=== PATIENT | male | born 1940 | race Caucasian/White ===

== ENCOUNTER 2018-05-14 10:19 | Outpatient (CLI) | payer MEDICARE, BC, SELFPAY ==
[2018-05-14 13:40] LABS: Cholesterol 146 mg/dL (50-200); HDL Cholesterol 45 mg/dL (40-60); LDL CHOLESTEROL 83 mg/dL (<100); Triglyceride 100 mg/dL (30-150)
== END 2018-05-14 10:39 ==
PROVIDERS: PCP Family Medicine; Visit Provider Family Medicine
DX: E78.5 Hyperlipidemia, unspecified (principal); R73.01 Impaired fasting glucose
CPT/HCPCS: 36415; 80061; 83721

== ENCOUNTER 2024-01-23 03:26 | Outpatient (CLI) | payer MEDICARE, BC, SELFPAY ==
[2024-01-23 10:01] LABS: Abs Immature Grans 0.15 10^3/uL (0.0-0.06); Absolute Basophil Count 0.04 10^3/uL (0.0-0.2); Absolute Monocyte Count 0.91 10^3/uL (0.1-0.8); Basophils % 0.3 %; Eosinophils % 0.4 %; HCT 39.7 % (40.0-50.0); HGB 13.4 g/dL (13.5-17.5); Immature Grans % 1.1 %; Lymphocytes % 4.9 %; MCH 30.1 pg (27.0-33.0); MCHC 33.8 % (32.0-36.0); MCV 89 fL (80-95); MPV 8.7 fL (8.0-11.0); Monocytes % 6.4 %; Neutrophils % 86.9 %; Platelet Count 331 10^3/uL (130-400); RBC 4.45 10^6/uL (4.36-5.78); RDW 13.1 % (11.8-14.1); RDW-SD 42.5 fL; WBC 14.22 10^3/uL (4.4-10.8)
[2024-01-23 10:02] LABS: Absolute Eosinophil Count 0.06 10^3/uL (0.0-0.7); Absolute Neutrophil Count 12.36 10^3/uL (1.2-6.7)
[2024-01-23 10:28] LABS: ALT 13 U/L (16-63); AST 21 U/L (15-37); Albumin 2.4 g/dL (3.4-5.0); Alkaline Phosphatase 248 U/L (46-116); Anion Gap 11.8 mmol/L (3-11); BUN 28 mg/dL (7-18); Bilirubin, Total 1.22 mg/dL (0.2-1.0); CO2 26.2 mmol/L (21.0-32.0); CREATININE 1.1 mg/dL (0.70-1.30); Chloride 98 mmol/L (98-107); Estimated GFR 67.02 (mL/min/1.73m2); FREE T4 1.28 ng/dL (0.76-1.46); Glucose 107 mg/dL (74-106); Magnesium 1.8 mg/dL (1.8-2.4); Potassium 3.5 mmol/L (3.5-5.1); Sodium 136 mmol/L (136-145); TSH 2.83 uIU/Ml (0.36-3.74); Total Protein 6.6 g/dL (6.4-8.2)
[2024-01-23 10:48] LABS: Vitamin B12 390 pg/mL (193-986)
[2024-01-24 15:57] LABS: Syphilis Serology (RPR) Negative (Negative)
== END 2024-01-23 03:27 | disposition home or self-care (01) ==
PROVIDERS: PCP Family Medicine; Visit Provider Internal Medicine Medical Oncology
DX: D64.9 Anemia, unspecified (principal); E03.9 Hypothyroidism, unspecified; I10 Essential (primary) hypertension; R41.3 Other amnesia; Z79.899 Other long term (current) drug therapy; C34.90 Malignant neoplasm of unspecified part of unspecified bronchus or lung; C79.51 Secondary malignant neoplasm of bone
CPT/HCPCS: 36415; 80053; 82565; 82607; 83735; 84439; 84443; 85025; 86592